=== PATIENT | male | born 1965 | race Caucasian/White ===

== ENCOUNTER 2017-02-03 02:22 | Inpatient (IN) | payer MEDICARE, MEDICAID ==
[~2017-02-03] VITALS: Ht 165.1 cm; Wt 85.0 kg
[2017-02-03] VITALS (16 sets, daily range): BP systolic 154–204; BP diastolic 98–139
--- NOTE | ~2017-02-03 | EKG ---
[place], [place] ELECTROCARDIOGRAM REPORT NAME: JERAMIE SYED UNIT #: [id number] ROOM: 404 DOCTOR: EDGAR ROSE MD BIRTHDATE: [birth year] DOS: 02/03/2017 TIME: 0249 a.m. FINDINGS: 1. Normal sinus rhythm, rate 68. 2. Normal EKG. EDGAR ROSE MD CM:EKGRPT:ELECTROCARDIOGRAM REPORT [id number] EDGAR ROSE MD
--- NOTE | ~2017-02-03 | WRIGHTHP ---
[place], [place] PATIENT HISTORY AND PHYSICAL EXAM NAME: JERAMIE SYED [facility] #: [id number] UNIT #: [id number] ROOM: 404 DOCTOR: JUAN RAMON GOETZ DO BIRTHDATE: [birth year] DOS: 02/03/2017 PRIMARY CARE PHYSICIAN: Dr. Jonathan Alatorre. The patient was seen and evaluated with the resident on 02/03/2017. Please see the resident's note for further details. ASSESSMENT: 1. Abdominal pain, possibly secondary to biliary colic. 2. Cholelithiasis seen on imaging. 3. Nausea and vomiting, resolved. 4. Hypertension emergency. 5. Mesenteric lymphadenopathy seen on CT scan. 6. Gastroesophageal reflux disease. 7. Anxiety. 8. Asthma. 9. History of schizophrenia. PLAN: The patient's symptoms are already significantly improved. It is possible his abdominal pain is coming from gallbladder disease. An ultrasound was ordered for further evaluation. General Surgery has been consulted. Norvasc has been added for the high blood pressure. JUAN RAMON GOETZ DO CM:HISPHYS:PATIENT HISTORY AND PHYSICAL EXAMINATION 1144 1223 JUAN RAMON GOETZ DO 02/03/17 1224 interface
[2017-02-03] MEDS ORDERED: NEXIUM40 MG PO (02:26)
[2017-02-03 02:46] LABS: BASO # 0.1 10*3/uL (0.0-0.1); BASO % 0.6 % (0.0-1.0); EOS # 0.2 10*3/uL (0.0-0.4); EOS % 1.5 % (1.0-4.0); HEMATOCRIT 45.4 % (42.0-52.0); HEMOGLOBIN 16.3 g/dl (14.0-18.0); IG # 0.1 10*3/uL (0.0-0.1); LYMPH # 1.7 10*3/uL (1.3-4.4); MEAN CELL VOLUME 81.4 fl (80.0-94.0); MEAN CORPUSCULAR HGB 29.2 pg (27.0-31.0); MEAN CORPUSCULAR HGB CONC 35.9 g/dl (33.0-37.0); MEAN PLATELET VOLUME 10.9 fl (9.6-12.3); MONO # 0.7 10*3/uL (0.1-1.0); MONO % 6.7 % (3.0-9.0); NEUT # 8.1 10*3/uL (2.3-7.9); NEUT % 74.6 % (47.0-73.0); PLATELET COUNT AUTOMATED 180 10*3/uL (130-400); RED BLOOD COUNT 5.58 10*6/uL (4.50-5.90); RED CELL DISTRI WIDTH 13.2 % (0-14.5); WHITE BLOOD COUNT 10.8 10*3/uL (4.8-10.8)
[2017-02-03 03:03] LABS: ALBUMIN 4.3 gm/dl (3.1-4.5); ALKALINE PHOSPHATASE 79 U/L (45-117); BILIRUBIN, TOTAL 0.7 mg/dl (0.2-1.0); BUN 14 mg/dl (7-24); CARBON DIOXIDE 25 mmol/L (21-32); CHLORIDE 107 mmol/L (98-107); EST GLOM FILT AFRICAN AMERICAN > 60 ml/min; GLUCOSE 118 mg/dL (65-99); POTASSIUM 3.8 mmol/L (3.5-5.1); SGPT/ALT 44 U/L (12-78); SODIUM 143 mmol/L (136-145); TOTAL PROTEIN 7.6 gm/dL (6.4-8.2)
[2017-02-03] MEDS ORDERED: MONTELUKAST SOD10 MG PO (03:03)
[2017-02-03 03:04] LABS: SGOT/AST 24 IU/L (3-35)
[2017-02-03] MEDS ORDERED: LORAZEPAM0.5 MG PO (03:04)
[2017-02-03] MEDS ORDERED: TRIFLUOPERAZINE2 M1 PO (03:05)
[2017-02-03] MEDS ORDERED: NOVAPLUS V0.09 MG/Ac INH (03:06)
[2017-02-03] MEDS ORDERED: SEREVENT DISKU50 MCG INH (03:06)
[2017-02-03 03:07] LABS: TROPONIN I < 0.015 ng/ml (<0.045)
[2017-02-04] VITALS: BP 180/98
[2017-02-04 04:00] VITALS: BP 175/90
[2017-02-04 05:53] LABS: BASO % 0.3 % (0.0-1.0); EOS % 0.2 % (1.0-4.0); HEMATOCRIT 46.7 % (42.0-52.0); HEMOGLOBIN 16.4 g/dl (14.0-18.0); IG # 0.1 10*3/uL (0.0-0.1); LYMPH # 1.2 10*3/uL (1.3-4.4); LYMPH % 10.8 % (27.0-41.0); MEAN CELL VOLUME 81.5 fl (80.0-94.0); MEAN CORPUSCULAR HGB 28.6 pg (27.0-31.0); MEAN CORPUSCULAR HGB CONC 35.1 g/dl (33.0-37.0); MEAN PLATELET VOLUME 11.1 fl (9.6-12.3); MONO # 0.6 10*3/uL (0.1-1.0); MONO % 5.6 % (3.0-9.0); NEUT # 9.2 10*3/uL (2.3-7.9); NEUT % 82.5 % (47.0-73.0); PLATELET COUNT AUTOMATED 195 10*3/uL (130-400); RED BLOOD COUNT 5.73 10*6/uL (4.50-5.90); RED CELL DISTRI WIDTH 13.3 % (0-14.5); WHITE BLOOD COUNT 11.2 10*3/uL (4.8-10.8)
[2017-02-04 06:17] LABS: BILIRUBIN, TOTAL 1.1 mg/dl (0.2-1.0); CHLORIDE 106 mmol/L (98-107); POTASSIUM 3.6 mmol/L (3.5-5.1); SGOT/AST 21 IU/L (3-35); SGPT/ALT 40 U/L (12-78); SODIUM 140 mmol/L (136-145); TOTAL PROTEIN 7.5 gm/dL (6.4-8.2)
[2017-02-04 06:20] LABS: PROTHROMBIN TIME 10.9 SECONDS (9.0-12.4)
[2017-02-04 06:24] LABS: ALBUMIN 4.5 gm/dl (3.1-4.5); ALKALINE PHOSPHATASE 72 U/L (45-117); BUN 12 mg/dl (7-24); CARBON DIOXIDE 23 mmol/L (21-32); EST GLOM FILT AFRICAN AMERICAN > 60 ml/min; FREE T4 0.84 ng/dl (0.76-1.46); GLUCOSE 110 mg/dL (65-99); MAGNESIUM 2.7 mg/dL (1.5-2.1)
[2017-02-04 06:58] LABS: HEMOGLOBIN A1c 5.2 % (4.8-5.6)
[2017-02-04 07:17] LABS: FOLIC ACID 15.39 ng/mL (>5.38)
[2017-02-04 07:52] VITALS: BP 172/98
[2017-02-04] MEDS ORDERED: AMLODIPINE BESY1 TAB PO (11:16)
[2017-02-04] MEDS ORDERED: HYDR12.5C PO (11:16)
[2017-02-04 11:49] VITALS: BP 160/100
== END 2017-02-04 11:53 | disposition home or self-care (01) | DRG 444 ==
LOC: ED 02:22 → EDHOLD 06:25 → 4E 06:25
PROVIDERS: Emergency Medicine Emergency Medical Services; Internal Medicine Hospice and Palliative Medicine
DX: K80.20 Calculus of gallbladder without cholecystitis without obstruction (principal); N17.0 Acute kidney failure with tubular necrosis; I16.1 Hypertensive emergency; F20.0 Paranoid schizophrenia; K21.9 Gastro-esophageal reflux disease without esophagitis; R59.1 Generalized enlarged lymph nodes; R73.9 Hyperglycemia, unspecified; K76.0 Fatty (change of) liver, not elsewhere classified; F41.1 Generalized anxiety disorder; J45.909 Unspecified asthma, uncomplicated; Z82.49 Family history of ischemic heart disease and other diseases of the circulatory system; Z79.899 Other long term (current) drug therapy